=== PATIENT | female | born 1985 | race Caucasian/White ===

== ENCOUNTER 2017-03-03 19:32 | Emergency (ER) | payer MEDICAID ==
[~2017-03-03] VITALS: Ht 157.5 cm; Wt 71.7 kg
[2017-03-03 19:32] VITALS: BP_SYST 126
--- NOTE | 2017-03-03 19:32 | NUR ---
Patient triaged and placed in waiting room. VSS and patient appears in no acute distress at this time. Accompanied by family, awaiting available bed, and MD notified of need for MSE.
--- NOTE | 2017-03-03 20:40 | NUR ---
Patient to ER bed 6 to gown for evaluation. Side rails up. Report given to Janice HENDRICKSON.
--- NOTE | 2017-03-03 20:44 | NUR ---
ER Dr. GARY at bedside examining patient.
[2017-03-03] MEDS ORDERED: METOCLOPRAMIDE HCL 10 MG/2 ML VIAL IVP ONE (21:00)
[2017-03-03] MEDS ORDERED: NACL 0.9% 1,000 ML IV ONE ×2 (21:00→22:45)
[2017-03-03 21:14] LABS: BASOPHILS % (AUTO) 0.3 % (0.0-2.0); HEMATOCRIT 46.5 % (36-48); HEMOGLOBIN 15.4 g/dL (12.0-16.0); LYMPHOCYTES # (AUTO) 0.5 K/uL (1.0-5.5); LYMPHOCYTES % (AUTO) 3.5 % (20.5-51.5); MEAN CORPUSCULAR HEMOGLOBIN 29 pg (27-31); MEAN CORPUSCULAR HGB CONC 33 % (32-36); MEAN CORPUSCULAR VOLUME 88 fL (79.0-98.0); MONOCYTES % (AUTO) 0.3 % (1.7-9.3); NEUTROPHILS # (AUTO) 14.9 K/uL (1.8-7.7); NEUTROPHILS % (AUTO) 95.9 % (40.0-70.0); PLATELET COUNT (AUTO) 270 K/uL (130-430); RED BLOOD CELL COUNT(AUTO) 5.31 MIL/uL (4.2-6.2); RED CELL DISTRIBUTION WIDTH 13.1 % (9.0-15.0); WHITE BLOOD COUNT (AUTO) 15.4 K/uL (4.8-10.8)
[2017-03-03 21:21] LABS: CALCIUM 9.1 mg/dL (8.4-11.0); CREATININE 0.8 mg/dL (0.55-1.30); POTASSIUM 3.8 mmol/L (3.5-5.1)
[2017-03-03 21:25] LABS: ALBUMIN 4.4 g/dL (3.4-4.8); TOTAL BILIRUBIN 0.3 mg/dL (0.0-1.0)
[2017-03-03] MEDS ORDERED: KETOROLAC TROMETHAMINE 30 MG VIAL IVP ONE (22:00)
[2017-03-03] MEDS ORDERED: MORPHINE 4 MG/ML INJ. SYRINGE IVP ONE (22:45)
[2017-03-03 23:54] LABS: BILIRUBIN,URINE NEGATIVE (NEGATIVE); BLOOD, URINE 3+ (NEGATIVE); CLARITY/URINE CLOUDY (CLEAR); COLOR,URINE YELLOW (YELLOW); GLUCOSE,URINE 1+ (NEGATIVE); KETONES,URINE 1+ (NEGATIVE); LEUKOCYTE ESTERASE ,URINE TRACE (NEGATIVE); NITRITE, URINE NEGATIVE (NEGATIVE); PROTEIN URINE TRACE (NEGATIVE); UROBILINOGEN,URINE 0.2 (0.2-1.0)
[2017-03-04 00:02] LABS: BACTERIA,URINE MODERATE /HPF (None Seen); RBC,URINE 20-50 /HPF (0-3)
[2017-03-04] MEDS ORDERED: cefTRIAXone 1 GM in D5W 50 ML IV ONE (00:30)
[2017-03-04] MEDS ORDERED: cefTRIAXone 1 GM VIAL ONE (00:53)
[2017-03-04 01:52] VITALS: BP_SYST 126
--- NOTE | 2017-03-04 01:52 | NUR ---
Patient given written and verbal discharge instructions and verbalizes understanding. ER MD discussed with patient the results and treatment provided. Given copies of tests performed in ER. Patient in stable condition. ID arm band removed. IV catheter removed intact and dressing applied, no active bleeding. Rx of TRAMADOL, CIPROFLOXACIN HYDROCHLORIDE, PROPRANOLOL HYDROCHLORIDE given. Patient educated on pain management and to follow up with PMD. Pain Scale 2/10. PT AMBULATED W/ STEADY GAIT. Opportunity for questions provided and answered.
[2017-03-05] MEDS ORDERED: ONDA4TAB22 PO (13:57)
[2017-03-05] MEDS ORDERED: NAPR-690 PO (13:57)
[2017-03-05] MEDS ORDERED: TRAM100T13 PO (13:57)
[2017-03-05] MEDS ORDERED: PROP40TA7 PO (13:57)
[2017-03-05] MEDS ORDERED: SERT50TA12 PO (13:57)
== END 2017-03-04 01:52 | disposition home or self-care (01) ==
LOC: SED 19:32
DX: G43.909 Migraine, unspecified, not intractable, without status migrainosus (principal); N39.0 Urinary tract infection, site not specified; R51 Headache
CPT/HCPCS: 36415; 70450; 80053; 81000; 81025; 83605; 85025; 87040; 87086; 93005; 96361; 96365; 96375; 99285; J0696; J1885; J2270; J2765; J7030; J7060

== ENCOUNTER 2017-03-05 10:14 | Inpatient (IN) | payer MEDICAID ==
[~2017-03-05] VITALS: Ht 157.5 cm; Wt 72.6 kg
[2017-03-05 10:21] VITALS: BP 140/96; PULSE 88; RESP 18; TEMP 96.7; O2SAT 98
--- NOTE | 2017-03-05 10:22 | NUR ---
Stable, alert and oriented x4. States woke up at 3AM with sharp left flank/abdominal pain that radiates to pelvis area. Denies nausea/vomiting/diarrhea. Abdomen soft and non distended. Denies hematuria, urinary frequency/retention, or burning/pain with urination. States is being treated for UTI at this time for nitrofurotin. No other complaints/injuries per patient or noted.
[2017-03-05 10:54] LABS: BILIRUBIN,URINE NEGATIVE (NEGATIVE); BLOOD, URINE 3+ (NEGATIVE); CLARITY/URINE HAZY (CLEAR); COLOR,URINE YELLOW (YELLOW); GLUCOSE,URINE NEGATIVE (NEGATIVE); KETONES,URINE NEGATIVE (NEGATIVE); LEUKOCYTE ESTERASE ,URINE NEGATIVE (NEGATIVE); NITRITE, URINE NEGATIVE (NEGATIVE); PROTEIN URINE NEGATIVE (NEGATIVE); UROBILINOGEN,URINE 0.2 (0.2-1.0)
[2017-03-05 10:58] LABS: BACTERIA,URINE MODERATE /HPF (None Seen); RBC,URINE 20-50 /HPF (0-3); WBC,URINE 0-3 /HPF (0-3)
[2017-03-05 10:59] LABS: MUCUS,URINE None Seen /LPF (None Seen)
[2017-03-05] MEDS ORDERED: NACL 0.9% 1,000 ML IV ONE (11:00)
[2017-03-05] MEDS ORDERED: ONDANSETRON HCL 4 MG/2 ML VIAL IVP ONE (11:00)
[2017-03-05] MEDS ORDERED: MORPHINE 4 MG/ML INJ. SYRINGE IVP ONE ×2 (11:00→11:45)
[2017-03-05 11:07] LABS: BASOPHILS # (AUTO) 0.1 K/uL (0.0-0.2); BASOPHILS % (AUTO) 0.4 % (0.0-2.0); EOSINOPHILS % (AUTO) 0.2 % (0.0-4.0); HEMATOCRIT 45.3 % (36-48); HEMOGLOBIN 14.9 g/dL (12.0-16.0); LYMPHOCYTES % (AUTO) 13.9 % (20.5-51.5); MEAN CORPUSCULAR HEMOGLOBIN 29 pg (27-31); MEAN CORPUSCULAR HGB CONC 33 % (32-36); MEAN CORPUSCULAR VOLUME 89 fL (79.0-98.0); MONOCYTES # (AUTO) 0.7 K/uL (0.0-1.0); MONOCYTES % (AUTO) 4.6 % (1.7-9.3); NEUTROPHILS # (AUTO) 11.6 K/uL (1.8-7.7); NEUTROPHILS % (AUTO) 80.9 % (40.0-70.0); PLATELET COUNT (AUTO) 258 K/uL (130-430); RED BLOOD CELL COUNT(AUTO) 5.12 MIL/uL (4.2-6.2); RED CELL DISTRIBUTION WIDTH 13.1 % (9.0-15.0); WHITE BLOOD COUNT (AUTO) 14.4 K/uL (4.8-10.8)
--- NOTE | 2017-03-05 11:10 | NUR ---
pt. medicated as per MD orders states pain 08/22 Morphine 4 mg admin IVP
[2017-03-05 11:14] LABS: CALCIUM 8.8 mg/dL (8.4-11.0); CREATININE 0.84 mg/dL (0.55-1.30); POTASSIUM 3.5 mmol/L (3.5-5.1)
[2017-03-05 11:18] LABS: ALBUMIN 4.4 g/dL (3.4-4.8); TOTAL BILIRUBIN 0.5 mg/dL (0.0-1.0); TOTAL PROTEIN, SERUM 7.6 g/dL (6.4-8.3)
--- NOTE | 2017-03-05 11:30 | NUR ---
pt. reassessed states that pain is still at 10/10 MD notified, MD ordered Morphine 4mg IVP
--- NOTE | 2017-03-05 11:44 | NUR ---
Pain states 10/10 pain at this time, Morphine 4mg given IV push as per MD orders
[2017-03-05] MEDS ORDERED: LR 1,000 ML IV.SOLN IV ONE (11:48)
[2017-03-05] MEDS ORDERED: DEXAMETHASONE SOD PHOSPHATE 4 MG/ML VIAL IVP ONE (11:48)
[2017-03-05] MEDS ORDERED: KETOROLAC TROMETHAMINE 30 MG VIAL IVP ONE (11:48)
[2017-03-05] MEDS ORDERED: MIDAZOLAM HCL 5 MG/5 ML VIAL IVP ONE (11:48)
[2017-03-05] MEDS ORDERED: LEVOFLOXACIN 500 MG/D5W 100 ML PIGGYBACK IV ONE (11:48)
[2017-03-05] MEDS ORDERED: PROPOFOL 200MG/ 20ML VIAL (DIPRIVAN) IV ONE (11:48)
[2017-03-05] MEDS ORDERED: WATER FOR IRRIGATION,STERILE 3,000 ML IRRIG.SOLN IR ONE (11:48)
[2017-03-05] MEDS ORDERED: fentaNYL CITRATE/PF 100 MCG/2 ML AMP IVP ONE ×3 (11:48→13:45)
[2017-03-05] MEDS ORDERED: SEVOFLURANE 15 MIN GAS INH ONE (11:48)
--- NOTE | 2017-03-05 12:10 | NUR ---
pt. given 50 mcg of fentnyl given as per MD orders, Pt. states pain still 10/
--- NOTE | 2017-03-05 12:10 | NUR ---
pt. on court monitor Pulse 85, SpO2 100 %
[2017-03-05] MEDS ORDERED: cefTRIAXone 1 GM in D5W 50 ML IV SCH (13:45)
--- NOTE | 2017-03-05 13:52 | NUR ---
Stable condition, alert and oriented x4, remaining on monitor.
[2017-03-05] MEDS ORDERED: NAPR-690 PO (13:57)
[2017-03-05] MEDS ORDERED: ONDA4TAB22 PO (13:57)
[2017-03-05] MEDS ORDERED: TRAM100T13 PO (13:57)
[2017-03-05] MEDS ORDERED: SERT50TA12 PO (13:57)
[2017-03-05] MEDS ORDERED: PROP40TA7 PO (13:57)
--- NOTE | 2017-03-05 13:57 | NUR ---
Medication reconciliation completed with information provided by Patient. Any prior medication reconciliation on file was reviewed and corrected.
--- NOTE | 2017-03-05 14:09 | NUR ---
ADMISSION NOTE Received patient from ER via dot, received report from liz HENDRICKSON. Patient admitted with diagnosis of renal colic/kidney stone. Patient oriented to hospital routine, call light, toileting and safety-patient verbalized understanding.
[2017-03-05] MEDS: KETOROLAC TROMETHAMINE 15 MG VIAL IVP PRN ×2 (14:16→21:10)
[2017-03-05 14:19] VITALS: BP 108/75; PULSE 89; RESP 19; TEMP 97.8; O2SAT 95
[2017-03-05] MEDS: NACL 0.9% 1,000 ML IV SCH (14:21)
--- NOTE | 2017-03-05 14:21 | NUR ---
Visit with patient holding left side and sighing in pain. Respirations a short and quick. Will monitor for needs.
[2017-03-05 14:28] VITALS: BP 108/75; PULSE 84; RESP 22; TEMP 97.8; O2SAT 95
--- NOTE | 2017-03-05 14:32 | NUR ---
Patient markedly improved after ADR RN pushed IV pain medication. Respirations symmetrical with even and regular rate.
[2017-03-05] MEDS: cefTRIAXone 1 GM in D5W 50 ML IV SCH (15:13)
--- NOTE | 2017-03-05 16:47 | NUR ---
Rounds to patient with increase in pain. Signed belongings list. ADR page to attending Doctor Urvashi.
--- NOTE | 2017-03-05 16:48 | NUR ---
UROLOGY CONSULT Spoke with Carrol regarding request for consultation with Dr. Echevarria ([phone]) for reason: kidney stone/renal colic.
[2017-03-05 16:50] VITALS: BP 133/96; PULSE 96; RESP 22; O2SAT 96
[2017-03-05] MEDS: MORPHINE 4 MG/ML INJ. SYRINGE IVP PRN ×3 (16:52→22:26)
--- NOTE | 2017-03-05 17:15 | NUR ---
Patient rounds. Requesting to eat cookies prior to dinner tray being passed. Now up in seated position to eat dinner.
--- NOTE | 2017-03-05 18:56 | NUR ---
ADR RN to move IV site as pump alarm continues at this time with left ac 20G site.
--- NOTE | 2017-03-05 19:34 | NUR ---
ROUNDS PATIENT IN BED, WATCHING TV, VITALS STABLE, NO PAIN AT THIS TIME. ASSESSMENT DONE AND DOCUMENTED. SEE FLOWSHEET. FAMILY AT THE BEDSIDE. NEEDS ATTENDED TO. SAFETY AND FALL PRECAUTION MEASURES IN PLACED. BED IN LOW AND LOCKED POSITION. CALL LIGHT PLACED WITHIN REACH.
--- NOTE | 2017-03-05 20:15 | NUR ---
PAIN MEDICATION PATIENT C/O OF LEFT FLANK PAIN , 10/10 PAIN SCALE, MORPHINE 4 MG IVP GIVEN ORDERED PRN FOR PAIN. PATIENT EDUCATED ON THE RISK FOR FALL, VERBALIZED UNDERSTANDING TO USE CALL LIGHT FOR HELP AND GETTING OUT OF BED. WILL CONTINUE TO MONITOR.
[2017-03-05] MEDS: TAMSULOSIN HCL 0.4 MG CAP PO SCH (22:17)
--- NOTE | 2017-03-05 22:58 | NUR ---
DR. ARBOLEDA PATIENT SEEN BY DR. ARBOLEDA, UROLOGY CONSULT, WITH NEW ORDERS. WILL CONTINUE TO MONITOR.
[2017-03-05 23:17] LABS: PROTHROMBIN TIME 11.2 SECS (9.5-12.5)
--- NOTE | 2017-03-06 | NUR ---
PATIENT RESTING: Patient resting quietly. No acute distress noted. Vital signs within normal range.
[2017-03-06 00:18] VITALS: BP 123/84; PULSE 90; RESP 16; TEMP 97.4; O2SAT 97
[2017-03-06] MEDS: MORPHINE 4 MG/ML INJ. SYRINGE IVP PRN ×5 (02:02→20:08)
[2017-03-06] MEDS: NACL 0.9% 1,000 ML IV SCH ×3 (02:04→19:45)
--- NOTE | 2017-03-06 02:15 | NUR ---
PATIENT RESTING: Patient resting quietly. No acute distress noted. Vital signs within normal range.
[2017-03-06] MEDS: KETOROLAC TROMETHAMINE 15 MG VIAL IVP PRN (03:08)
--- NOTE | 2017-03-06 04:17 | NUR ---
PAIN C/O OF FLANK PAIN , LEFT, 9/10 PAIN SCALE, MORPHINE 4 MG IV GIVEN ORDERED PRN FOR PAIN. EDUCATED ON THE RISK FOR FALL AND PATIENT VERBALIZED UNDERSTANDING AND TO USE CALL LIGHT WHEN NEEDED. WILL CONTINUE TO MONITOR.
[2017-03-06 04:40] VITALS: BP 121/83; PULSE 82; RESP 16; TEMP 98.4; O2SAT 97
--- NOTE | 2017-03-06 06:47 | NUR ---
CLOSING NOTES PATIENT AWAKE, VITALS STABLE, NO PAIN AND DISCOMFORT NOTED AT THIS TIME. ALL NEEDS ATTENDED TO.SAFETY MEASURES MAINTAINED. CALL LIGHT PLACED WITHIN REACH.
[2017-03-06 06:59] LABS: BASOPHILS % (AUTO) 0.2 % (0.0-2.0); EOSINOPHILS # (AUTO) 0.1 K/uL (0.0-0.4); EOSINOPHILS % (AUTO) 1.1 % (0.0-4.0); HEMOGLOBIN 13.4 g/dL (12.0-16.0); LYMPHOCYTES # (AUTO) 2.1 K/uL (1.0-5.5); LYMPHOCYTES % (AUTO) 15.7 % (20.5-51.5); MEAN CORPUSCULAR HEMOGLOBIN 30 pg (27-31); MEAN CORPUSCULAR HGB CONC 34 % (32-36); MEAN CORPUSCULAR VOLUME 89 fL (79.0-98.0); MONOCYTES # (AUTO) 0.8 K/uL (0.0-1.0); MONOCYTES % (AUTO) 6.3 % (1.7-9.3); NEUTROPHILS # (AUTO) 10.4 K/uL (1.8-7.7); NEUTROPHILS % (AUTO) 76.7 % (40.0-70.0); PLATELET COUNT (AUTO) 222 K/uL (130-430); RED BLOOD CELL COUNT(AUTO) 4.39 MIL/uL (4.2-6.2); WHITE BLOOD COUNT (AUTO) 13.4 K/uL (4.8-10.8)
[2017-03-06 07:22] VITALS: BP 102/62; PULSE 89; RESP 24; TEMP 97.9; O2SAT 96
--- NOTE | 2017-03-06 07:32 | NUR ---
HANDOFF AND FIRST ROUNDS. PATIENT LABORING AND TACHYPNIEC DURING BREATHING. GIVEN PRN FOR PAIN. SITE IS LEFT UPPER ABDOMEN/FLANK. INSTRUCTED TO REMOVE JEWELRY AND UNDERGARMENTS. NOTIFIED TYPIST TO ASSIST WITH CHG.
[2017-03-06 07:35] LABS: ALBUMIN 3.5 g/dL (3.4-4.8); CALCIUM 8.3 mg/dL (8.4-11.0); CREATININE 0.95 mg/dL (0.55-1.30); POTASSIUM 3.5 mmol/L (3.5-5.1); TOTAL BILIRUBIN 0.4 mg/dL (0.0-1.0); TOTAL PROTEIN, SERUM 6.4 g/dL (6.4-8.3); URIC ACID 4.2 mg/dL (2.4-7.0)
[2017-03-06] MEDS: TAMSULOSIN HCL 0.4 MG CAP PO SCH ×2 (09:00→20:12)
--- NOTE | 2017-03-06 10:19 | NUR ---
Rounds to assess pain. Will flush IV site. Alarm on pump noted.
--- NOTE | 2017-03-06 10:51 | NUR ---
NEW IV SITE X1 ATTEMPT PLACED AT THIS TIME LEFT FOREARM 22G.
[2017-03-06] MEDS ORDERED: IOHEXOL 0 ML IV ONE (11:50)
[2017-03-06 12:00] VITALS: BP 107/64; PULSE 86; RESP 16; TEMP 97.5; O2SAT 95
--- NOTE | 2017-03-06 12:17 | NUR ---
CALL FROM OR VP CARDIOVASCULAR. PATIENT IN OR AT THIS TIME. INCLUDED RECENT LABS. PATIENT HAD CHG BATH AND ALSO GIVEN NEW GOWN. SHE CHANGED AND REMOVED ALL UNDERGARMENTS AND YELLOW METAL RING.
[2017-03-06] MEDS ORDERED: LR 1,000 ML IV ONE (12:25)
[2017-03-06] MEDS ORDERED: DIPHENHYDRAMINE INJ 50 MG/ML VIAL IVP PRN (12:30)
[2017-03-06] MEDS ORDERED: NALBUPHINE HCL 10 MG/ML AMP IVP PRN (12:30)
[2017-03-06] MEDS ORDERED: ePHEDrine sulfate 50 MG/ML VIAL IVP PRN (12:30)
[2017-03-06] MEDS ORDERED: NALOXONE HCL 0.4 MG/ML AMP (NARCAN) IVP PRN (12:30)
[2017-03-06] MEDS ORDERED: fentaNYL CITRATE/PF 100 MCG/2 ML AMP IVP PRN (12:30)
[2017-03-06] MEDS ORDERED: ONDANSETRON HCL 4 MG/2 ML VIAL IVP PRN ×2 (12:30)
--- NOTE | 2017-03-06 13:40 | NUR ---
Return from OR with headache. Pt says started prior to departure. Handoff report with OR nurse says to give clears. Rounds to patient. Needs met at this time.
[2017-03-06 15:26] VITALS: BP 102/68; PULSE 96; RESP 19; TEMP 96.4; O2SAT 99
[2017-03-06] MEDS: cefTRIAXone 1 GM in D5W 50 ML IV SCH (15:42)
--- NOTE | 2017-03-06 16:16 | NUR ---
Patient has 8/10 pain and given prn morphine. Tolerated diet. Ambulated and voided post procedure.
--- NOTE | 2017-03-06 19:31 | NUR ---
ROUNDS WITH NOC NURSE FOR HANDOFF. PATIENT SAYS PAIN IN HEADACHE IS GONE AND NOW PAIN IS IN PELVIC AREA. PATIENT ABLE TO VOID POSTOPERATIVELY AND TOLERATES DIET.
--- NOTE | 2017-03-06 20:00 | NUR ---
Initial note A/O x 3, no SOB, no chest pain, c/o abdomen pain, Morphine IVP given. Skin warm to touch, IV at L AC, patent, IVF continued, no s/s of infection or infiltration. Clear lung sounds and active bowel sounds. Patient stated she also had dysuria and pinkish urine output. Call light within reach, will continue to monitor patient.
[2017-03-06 21:28] VITALS: BP 120/75; PULSE 104; RESP 18; TEMP 98.5; O2SAT 98
--- NOTE | 2017-03-06 22:10 | NUR ---
Rounds A/O x 3, resting in bed, no SOB, no chest pain, abdomen pain decreased after Morphine IVP given. Skin warm to touch, IV at L AC, patent, IVF continued, no s/s of infection or infiltration. Call light within reach, will continue to monitor patient.
[2017-03-07] VITALS (7 sets, daily range): BP systolic 100–132; BP diastolic 54–84; PULSE 81–95; RESP 14–20; TEMP 96.8–98.4; O2SAT 93–98
--- NOTE | 2017-03-07 00:25 | NUR ---
Rounds Resting/sleeping in bed, no SOB, no chest pain, no grimacing. IV at L AC, patent, IVF continued, no s/s of infection or infiltration. Call light within reach, will continue to monitor patient.
--- NOTE | 2017-03-07 02:45 | NUR ---
Rounds Sleeping in bed, no SOB, no chest pain, no grimacing. IVF continued, no s/s of infection or infiltration. Call light within reach, will continue to monitor patient.
[2017-03-07] MEDS: NACL 0.9% 1,000 ML IV SCH ×2 (03:57→15:30)
[2017-03-07] MEDS: MORPHINE 4 MG/ML INJ. SYRINGE IVP PRN ×3 (06:32→18:28)
--- NOTE | 2017-03-07 06:40 | NUR ---
Closing note Resting in bed, no SOB, no chest pain, patient stated she went to bathroom for urination earlier and c/o severe pain at lower ABD. Patient stated she only c/o pain when she urination or moving. Morphine IVP given. Patient also stated no pink urine, it was clear yellow urine. SCD in place, Incentive spirometer within reach, patient can inhale about [id number] ml. IVF continued, no s/s of infection or infiltration. Call light within reach, will give report to incoming nurse regarding patient condition and pain management.
[2017-03-07 07:36] LABS: CALCIUM 8.9 mg/dL (8.4-11.0); CREATININE 0.57 mg/dL (0.55-1.30); POTASSIUM 3.9 mmol/L (3.5-5.1)
[2017-03-07 07:46] LABS: HEMATOCRIT 38.3 % (36-48); MEAN CORPUSCULAR HEMOGLOBIN 31 pg (27-31); MEAN CORPUSCULAR HGB CONC 34 % (32-36); MEAN CORPUSCULAR VOLUME 91 fL (79.0-98.0); PLATELET COUNT (AUTO) 235 K/uL (130-430); RED BLOOD CELL COUNT(AUTO) 4.24 MIL/uL (4.2-6.2); RED CELL DISTRIBUTION WIDTH 12.6 % (9.0-15.0)
--- NOTE | 2017-03-07 08:34 | NUR ---
Rounds to patient who requests work excuse one week, follow up time with Doctor Echevarria and also pain medication for home. Will ask MDs to advise.
[2017-03-07 09:55] LABS: ATYPICAL LYMPHOCYTES % 0 % (0-0); BAND % (MANUAL) 4 % (0-6); BASOPHILS % (MANUAL) 0 % (0-2); EOSINOPHILS % (MANUAL) 0 % (0-7); LYMPHOCYTES % (MANUAL) 6 % (20-46); MONOCYTES % (MANUAL) 5 % (0-11)
[2017-03-07] MEDS: TAMSULOSIN HCL 0.4 MG CAP PO SCH ×2 (11:26→21:54)
--- NOTE | 2017-03-07 11:33 | NUR ---
Provider aware of labwork for am and will keep patient to monitor WBC values. Patient also noted in past hospitalization she had increase in WBC values. Patient request to have prn pain med which was administered. She says the pain comes randomly in seated position when voiding in the right lower back and pelvic location.
--- NOTE | 2017-03-07 13:23 | NUR ---
Patient completed shower. Had IV get moisture during shower. Changed dressing of IV. Will monitor for problems.
[2017-03-07] MEDS: cefTRIAXone 1 GM in D5W 50 ML IV SCH (15:08)
[2017-03-07 17:45] LABS: BASOPHILS # (AUTO) 0.1 K/uL (0.0-0.2); EOSINOPHILS # (AUTO) 0.1 K/uL (0.0-0.4); HEMOGLOBIN 12.9 g/dL (12.0-16.0); LYMPHOCYTES # (AUTO) 2.3 K/uL (1.0-5.5); MEAN CORPUSCULAR VOLUME 89 fL (79.0-98.0)
[2017-03-07 17:48] LABS: BASOPHILS % (AUTO) 0.7 % (0.0-2.0); EOSINOPHILS % (AUTO) 0.6 % (0.0-4.0); HEMATOCRIT 37.3 % (36-48); LYMPHOCYTES % (AUTO) 12.6 % (20.5-51.5); MEAN CORPUSCULAR HEMOGLOBIN 31 pg (27-31); MEAN CORPUSCULAR HGB CONC 35 % (32-36); MONOCYTES % (AUTO) 5.6 % (1.7-9.3); NEUTROPHILS # (AUTO) 14.8 K/uL (1.8-7.7); NEUTROPHILS % (AUTO) 80.5 % (40.0-70.0); PLATELET COUNT (AUTO) 233 K/uL (130-430); RED CELL DISTRIBUTION WIDTH 12.9 % (9.0-15.0); WHITE BLOOD COUNT (AUTO) 18.3 K/uL (4.8-10.8)
--- NOTE | 2017-03-07 18:14 | NUR ---
Patient rounds and IV monitor beeping. Patient in her bathroom at this time. Will round again soon.
--- NOTE | 2017-03-07 18:30 | NUR ---
PRN pain med given as per request of patient for headache and right side flank and pelvic pain. She says she is voiding with some large volumes and when bearing down again more fluid comes out. She also had a bm today.
--- NOTE | 2017-03-07 19:50 | NUR ---
OPENING NOTES PATIENT IS A/OX4. NO SIGNS OF DISTRESS. BREATHING IS NON LABORED. VITAL SIGNS ARE STABLE. IV IS PATENT AND SHOWS NO SIGNS OF COMPLICATIONS. PATIENT DENIES PAIN AT THIS TIME. PATIENT INSTRUCTED TO CALL FOR ASSISTANCE. CALL LIGHT IS WITHIN REACH. SAFETY MEASURES ARE IN PLACE. WILL CONTINUE TO MONITOR.
--- NOTE | 2017-03-07 20:30 | NUR ---
ROUNDS PATIENT WAS GIVEN A SANDWICH AND APPLESAUCE.
--- NOTE | 2017-03-07 21:25 | NUR ---
UNABLE TO ASSESS URINE OUTPUT PATIENT REMOVE "HAT" FROM TOILET. PATIENT INSTRUCTED TO LEAVE "HAT" IN PLACE AND CALL AFTER VOIDING. PATIENT VERBALIZED UNDERSTANDING.
--- NOTE | 2017-03-07 22:06 | NUR ---
PAGED: I PAGED DR. SCHREIBER @ [phone] I SPOKE WITH MIKE SCHREIBER CALLED BACK @ [phone]
--- NOTE | 2017-03-07 22:21 | NUR ---
HEADACHE PATIENT HAS COMPLAINTS OF HEADACHE. SPOKE TO DOCTOR ABDOUL. WILL INPUT NEW ORDERS.
[2017-03-07] MEDS ORDERED: ACETAMINOPHEN 325 MG TABLET PO PRN (22:30)
--- NOTE | 2017-03-08 00:30 | NUR ---
ROUNDS PATIENT IS IN BED SLEEPING. NO SIGNS OF DISTRESS. BREATHING IS NON LABORED. SAFETY MEASURES ARE IN PLACE. WILL CONTINUE TO MONITOR.
[2017-03-08] MEDS: NACL 0.9% 1,000 ML IV SCH (02:06)
--- NOTE | 2017-03-08 02:40 | NUR ---
ROUNDS PATIENT IS IN BED SLEEPING. NO SIGNS OF DISTRESS. BREATHING IS NON LABORED. CALL LIGHT IS WITHIN REACH. SAFETY MEASURES ARE IN PLACE. WILL CONTINUE TO MONITOR.
[2017-03-08 03:45] VITALS: BP 115/80; PULSE 76; RESP 16; TEMP 97.8; O2SAT 97
--- NOTE | 2017-03-08 03:52 | NUR ---
URINE ASSESSED PATIENT URINE WAS ASSESSED. PATIENT'S OUTPUT WAS 600ML OF PINK TINGED URINE.
--- NOTE | 2017-03-08 06:40 | NUR ---
CLOSING NOTES PATIENT IS IN BED SLEEPING. NO SIGNS OF DISTRESS. BREATHING IS ON LABORED. IV IS PATENT AND SHOWS NO SIGNS OF COMPLICATION. SAFETY MEASURES ARE IN PLACE. WILL ENDORSE ALL CARE TO THE MORNING NURSE.
--- NOTE | 2017-03-08 07:30 | NUR ---
am notes: report given by night nurse adrienne at the bedside. patient sleeping during rounds. no distress.
[2017-03-08 09:48] VITALS: BP_SYST 115; BP_DIAS 62; BP_DIAS 64; PULSE 94; RESP 18; TEMP 96.4; O2SAT 98
[2017-03-08] MEDS: TAMSULOSIN HCL 0.4 MG CAP PO SCH (09:51)
--- NOTE | 2017-03-08 09:55 | NUR ---
meds: due po meds given. c/o mild cramping from the abdomen but patient stated,does not need any pain meds this time.
--- NOTE | 2017-03-08 10:41 | NUR ---
md rounds: patient seen by dr kang with orders dc home and f/u with pcp and urologist in 1 week.
[2017-03-08] MEDS ORDERED: LACT1CAP69 PO (10:48)
[2017-03-08] MEDS ORDERED: CEPH-568 PO (10:48)
[2017-03-08] MEDS ORDERED: TAMS0.4C96 PO (10:54)
[2017-03-08 11:08] LABS: BASOPHILS % (AUTO) 0.2 % (0.0-2.0); EOSINOPHILS # (AUTO) 0.2 K/uL (0.0-0.4); EOSINOPHILS % (AUTO) 1.5 % (0.0-4.0); HEMATOCRIT 39.7 % (36-48); HEMOGLOBIN 13.4 g/dL (12.0-16.0); MEAN CORPUSCULAR HEMOGLOBIN 30 pg (27-31); MEAN CORPUSCULAR HGB CONC 34 % (32-36); MEAN CORPUSCULAR VOLUME 89 fL (79.0-98.0); MONOCYTES # (AUTO) 0.4 K/uL (0.0-1.0); MONOCYTES % (AUTO) 3.5 % (1.7-9.3); NEUTROPHILS # (AUTO) 10.2 K/uL (1.8-7.7); NEUTROPHILS % (AUTO) 78.8 % (40.0-70.0); PLATELET COUNT (AUTO) 244 K/uL (130-430); RED BLOOD CELL COUNT(AUTO) 4.48 MIL/uL (4.2-6.2); RED CELL DISTRIBUTION WIDTH 12.8 % (9.0-15.0)
[2017-03-08 11:09] LABS: WHITE BLOOD COUNT (AUTO) 12.8 K/uL (4.8-10.8)
[2017-03-08 11:32] VITALS: BP 112/65; PULSE 83; RESP 19; TEMP 97.4; O2SAT 99
--- NOTE | 2017-03-08 12:15 | NUR ---
meal: lunch served. no problem.
[2017-03-08 13:17] VITALS: BP 129/86; PULSE 81; RESP 18; TEMP 97.8; O2SAT 96
--- NOTE | 2017-03-08 14:19 | NUR ---
rounds: patient sleeping during rounds. stable.
[2017-03-08] MEDS: cefTRIAXone 1 GM in D5W 50 ML IV SCH (15:16)
--- NOTE | 2017-03-08 15:19 | NUR ---
ivpb: iv rocephine as ordered. pt's ride coming after iv antibiotics done.
[2017-03-08] MEDS: KETOROLAC TROMETHAMINE 15 MG VIAL IVP PRN (15:42)
--- NOTE | 2017-03-08 15:45 | NUR ---
pain meds: c/o migraine,due iv toradol given per request.
[2017-03-08 16:32] VITALS: BP 129/86; PULSE 81; RESP 18; TEMP 97.8; O2SAT 96
--- NOTE | 2017-03-08 17:05 | NUR ---
DC NOTES: TRANSITIONAL CARE DOCUMENTS GIVEN TO PATIENT AND VERBALIZED UNDERSTANDING OF DC INSTRUCTIONS. IV REMOVED,DRY GAUZE APPLIED,NO BLEEDING NOTED. PERSONAL BELONGINGS SEND HOME WITH THE PATIENT. PATIENT IS ACCOMPANIED HOME BY HER FATHER IN STABLE CONDITION.
== END 2017-03-08 16:55 | disposition home or self-care (01) | DRG 720 ==
LOC: SED 10:14 → SMU 13:35
PROVIDERS: ADMIT Internal Medicine; ATTEND Internal Medicine
PROC: 0T778DZ Dilation of Left Ureter with Intraluminal Device, Via Natural or Artificial Opening Endoscopic (ICD-10-PCS; principal; 2017-03-06 12:00)
DX: A41.9 Sepsis, unspecified organism (principal); N13.2 Hydronephrosis with renal and ureteral calculous obstruction; N39.0 Urinary tract infection, site not specified; E66.3 Overweight; D72.829 Elevated white blood cell count, unspecified; Z87.442 Personal history of urinary calculi; Z90.49 Acquired absence of other specified parts of digestive tract; Z98.51 Tubal ligation status; Z68.29 Body mass index [BMI] 29.0-29.9, adult
CPT/HCPCS: 36415; 76000; 80048; 80053; 81000-TC; 84550-TC; 84702-TC; 84703; 85007; 85025; 85027; 85610-TC; 85730-TC; 87081; 96361; 96374; 96375; 96376; 99285; C1769; C2625; J0696; J1100; J1885; J1956; J2250; J2270; J2405; J2704; J3010; J7030; J7060; J7120; Q9967

== ENCOUNTER 2018-04-30 19:46 | Emergency (ER) | payer MEDICAID ==
[~2018-04-30] VITALS: Ht 157.5 cm; Wt 76.2 kg
[~2018-04-30 19:46] MED LIST: CEPH-568 PO; LACT1CAP69 PO; NAPR-690 PO; ONDA4TAB22 PO; PROP40TA7 PO; SERT50TA12 PO; TAMS0.4C96 PO; TRAM100T13 PO
[2018-04-30 19:50] VITALS: BP_SYST 135
== END 2018-04-30 21:10 | disposition left against medical advice (07) ==
LOC: SED 19:46
DX: R10.30 Lower abdominal pain, unspecified (principal); G43.909 Migraine, unspecified, not intractable, without status migrainosus; Z53.21 Procedure and treatment not carried out due to patient leaving prior to being seen by health care provider

== ENCOUNTER 2018-09-21 18:48 | Emergency (ER) | payer MEDICAID ==
[~2018-09-21] VITALS: Ht 157.5 cm; Wt 71.7 kg
[~2018-09-21 18:48] MED LIST changes: -TRAM100T13 PO; +TRAM100T34 PO
[2018-09-21 18:58] VITALS: BP_SYST 150
--- NOTE | 2018-09-21 19:02 | NUR ---
Ambulatory to bed 4 accompanied by sister
--- NOTE | 2018-09-21 19:04 | NUR ---
Patient AAOx4, ambulatory. Patient states having a main complaint of headache pain with pain scale 10/10 at this time. Patient states she has had the same problem before, but states the pain was "the worst it's ever been" recently. Patient states having eye sensitivity to bright lights with nausea. Patient denies any other complaints.
--- NOTE | 2018-09-21 19:18 | NUR ---
ER Dr. Cavazos at bedside examining patient.
--- NOTE | 2018-09-21 19:20 | NUR ---
# 22 gauge angiocath placed to left AC. Use of asceptic technique. Opsite placed over site. Blood return noted. Flushed with 10 cc of normal saline. No evidence of infiltration noted. Patient tolerated well.
[2018-09-21] MEDS ORDERED: ONDANSETRON 4 MG ODT TAB PO ONE (19:30)
[2018-09-21] MEDS ORDERED: MORPHINE 2 MG/ML INJ. SYRINGE IVP ONE (19:30)
--- NOTE | 2018-09-21 19:36 | NUR ---
ER Dr. Miller at bedside examining patient.
[2018-09-21] MEDS ORDERED: MORPHINE 4 MG/ML INJ. SYRINGE IVP ONE (20:15)
[2018-09-21] MEDS ORDERED: KETOROLAC TROMETHAMINE 30 MG VIAL IVP ONE (20:15)
[2018-09-21] MEDS ORDERED: DIPHENHYDRAMINE INJ 50 MG/ML VIAL IVP ONE (20:15)
--- NOTE | 2018-09-21 20:42 | NUR ---
Patient denies pain and nausea at this time. MD was notified.
[2018-09-21 20:50] VITALS: BP_SYST 138
--- NOTE | 2018-09-21 20:50 | NUR ---
Patient given written and verbal discharge instructions and verbalizes understanding. ER MD discussed with patient the results and treatment provided. Patient in stable condition. ID arm band removed. IV catheter removed intact and dressing applied, no active bleeding. Rx of zofran, norco, and motrin given. Patient educated on pain management and to follow up with PMD. Pain Scale 0/10. Opportunity for questions provided and answered. Medication side effect fact sheet provided.
== END 2018-09-21 20:50 | disposition home or self-care (01) ==
LOC: SED 18:48
DX: G43.909 Migraine, unspecified, not intractable, without status migrainosus (principal); I10 Essential (primary) hypertension; Z87.442 Personal history of urinary calculi; Z79.899 Other long term (current) drug therapy
CPT/HCPCS: 96374; 96375; 96376; 99284; J1200; J1885; J2270 ×2; Q0162

== ENCOUNTER 2019-04-02 20:57 | Emergency (ER) | payer MEDICAID ==
[~2019-04-02] VITALS: Ht 157.5 cm; Wt 70.3 kg
[2019-04-02 21:02] VITALS: BP_SYST 137
[2019-04-02] MEDS ORDERED: KETOROLAC TROMETHAMINE 60 MG/2 ML VIAL IM ONE (21:15)
[2019-04-02] MEDS ORDERED: PROCHLORPERAZINE EDISYLATE 10 MG/2 ML VIAL IM ONE (21:15)
[2019-04-02] MEDS ORDERED: MORPHINE 4 MG/ML INJ. SYRINGE IVP ONE (22:30)
[2019-04-02 23:33] VITALS: BP_SYST 119
== END 2019-04-02 23:33 | disposition home or self-care (01) ==
LOC: SED 20:57
DX: G43.909 Migraine, unspecified, not intractable, without status migrainosus (principal); I10 Essential (primary) hypertension; Z87.442 Personal history of urinary calculi; Z79.899 Other long term (current) drug therapy
CPT/HCPCS: 81002; 81025; 96372; 96374; 99283; J0780; J1885; J2270